=== PATIENT | female | born 1980 | race Caucasian/White ===

== ENCOUNTER → 2021-12-24 | Outpatient (CLI) | payer MEDICAID | LOC: M RAD 13:56 | PROVIDERS: ATTEND Physician Assistant Medical | DX: M79.675 Pain in left toe(s) (principal) ==

== ENCOUNTER 2022-09-02 10:17 | Emergency (ER) | payer MEDICAID, OTHER ==
[~2022-09-02] VITALS: Ht 175.3 cm; Wt 111.4 kg
[2022-09-02] MEDS ORDERED: PANTOPRAZOLE 40MG VIAL IV ONE (10:30)
[2022-09-02] MEDS ORDERED: GI COCKTAIL 50ML BTL(HYOSCYAMINE/MAALOX/LIDOCAINE VISCOUS)(1:3:1) PO ONE (10:30)
[2022-09-02 10:46] LABS: BASO # 0.1 10^3/uL (0.0-0.2); BASO % 0.6 % (0.0-1.0); EOS # 0.1 10^3/uL (0.0-0.5); EOS % 1.1 % (0.0-3.0); HEMATOCRIT 38.9 % (36.0-47.0); HEMOGLOBIN 12.7 g/dl (12.0-15.5); LYMPH # 1.1 10^3/uL (1.5-5.0); LYMPH % 11.9 % (24.0-44.0); MEAN CORPUSCULAR HEMOGLOBIN 28.9 pg (27.0-33.0); MEAN CORPUSCULAR HGB CONC 32.6 g/dl (32.0-36.5); MEAN CORPUSCULAR VOLUME 88.6 fl (80.0-96.0); MONO # 0.5 10^3/uL (0.0-0.8); MONO % 5.6 % (2.0-8.0); NEUTROPHILS # 7.1 10^3/uL (1.5-8.5); NEUTROPHILS % 80.5 % (36.0-66.0); PLATELET COUNT, AUTOMATED 255 10^3/uL (150-450); RED BLOOD COUNT 4.39 10^6/uL (4.00-5.40); WHITE BLOOD COUNT 8.9 10^3/uL (4.0-10.0)
[2022-09-02 11:07] LABS: CK-MB VALUE MASS < 1.0 NG/ML (<3.6)
[2022-09-02 11:09] LABS: LIPASE 31 U/L (12-53)
[2022-09-02 11:11] LABS: ALBUMIN 3.6 G/DL (3.2-5.2); ALKALINE PHOSPHATASE 77 U/L (46-116); ALT/SGPT 60 U/L (7.0-40); AST/SGOT 85 U/L (<34); BILIRUBIN,DIRECT 0.3 MG/DL (<0.4); BILIRUBIN,TOTAL 0.7 MG/DL (0.3-1.2); BLOOD UREA NITROGEN 12 MG/DL (9-23); CALCIUM LEVEL 8.4 MG/DL (8.5-10.1); CARBON DIOXIDE LEVEL 26 MMOL/L (20-31); CHLORIDE LEVEL 106 MMOL/L (98-107); CREATININE FOR GFR 0.84 MG/DL (0.55-1.30); GLOMERULAR FILTRATION RATE > 60.0 (>58); GLUCOSE, FASTING 107 MG/DL (60-100); POTASSIUM SERUM 3.8 MMOL/L (3.5-5.1); SODIUM LEVEL 140 MMOL/L (136-145); TOTAL PROTEIN 6.6 G/DL (5.7-8.2)
[2022-09-02 11:12] LABS: THYROID STIMULATING HORMONE 1.163 uIU/ML (0.55-4.78)
[2022-09-02 11:13] LABS: CPK CREATINE PHOSPHOKINASE 61 U/L (34-145); HCG, SERUM QUALITATIVE NEGATIVE (NEGATIVE); MB/CK RELATIVE INDEX 1.63 (< OR =4)
[2022-09-02] MEDS ORDERED: ONDANSETRON 4MG 2ML VIAL IV ONE (11:55)
[2022-09-02] MEDS ORDERED: MORPHINE 2 MG/ML 1ML VIAL IV PRN (11:55)
[2022-09-02 12:15] LABS: CK-MB VALUE MASS < 1.0 NG/ML (<3.6)
[2022-09-02 12:18] LABS: CPK CREATINE PHOSPHOKINASE 59 U/L (34-145); MB/CK RELATIVE INDEX 1.69 (< OR =4)
[2022-09-02] MEDS ORDERED: ISOVUE-370 76% 100ML VIAL As Ordered ONE (12:24)
[2022-09-02] MEDS ORDERED: PROT1TAB2 PO (15:02)
[2022-09-02] MEDS ORDERED: CARA1TAB6 PO (15:03)
[2022-09-02 15:10] VITALS: BP 112/72
== END 2022-09-02 15:17 | disposition home or self-care (01) ==
LOC: M ED 10:17 → EDBD 10:17 → M ED 15:17
DX: R07.9 Chest pain, unspecified (principal); Z79.899 Other long term (current) drug therapy
CPT/HCPCS: 71045; 71275; 74177; 80048; 80076; 82550; 82553; 83690; 84439; 84443; 84703; 85025; 93005; 93041; 94760; 96365; 96366; 96375; 99285; C9113; J2405; Q9967

== ENCOUNTER → 2023-05-22 | Outpatient (REF) | payer OTHER, MEDICAID ==
[~2023-05-22] MED LIST: CARA1TAB6 PO; PROT1TAB2 PO
[2023-05-22 18:30] LABS: BASO # 0.1 10^3/uL (0.0-0.2); BASO % 0.7 % (0.0-1.0); EOS # 0.2 10^3/uL (0.0-0.5); HEMATOCRIT 44.1 % (36.0-47.0); HEMOGLOBIN 14.3 g/dl (12.0-15.5); LYMPH # 1.6 10^3/uL (1.5-5.0); LYMPH % 23.2 % (24.0-44.0); MEAN CORPUSCULAR HEMOGLOBIN 29.7 pg (27.0-33.0); MEAN CORPUSCULAR HGB CONC 32.4 g/dl (32.0-36.5); MEAN CORPUSCULAR VOLUME 91.5 fl (80.0-96.0); MONO # 0.4 10^3/uL (0.0-0.8); MONO % 6.1 % (2.0-8.0); NEUTROPHILS # 4.5 10^3/uL (1.5-8.5); NEUTROPHILS % 66.7 % (36.0-66.0); PLATELET COUNT, AUTOMATED 271 10^3/uL (150-450); RED BLOOD COUNT 4.82 10^6/uL (4.00-5.40); WHITE BLOOD COUNT 6.7 10^3/uL (4.0-10.0)
[2023-05-22 19:02] LABS: ALBUMIN 4.1 G/DL (3.2-5.2); ALKALINE PHOSPHATASE 65 U/L (46-116); ALT/SGPT 33 U/L (7.0-40); AST/SGOT 23 U/L (<34); BILIRUBIN,TOTAL 0.4 MG/DL (0.3-1.2); BLOOD UREA NITROGEN 11 MG/DL (9-23); CALCIUM LEVEL 9.2 MG/DL (8.5-10.1); CARBON DIOXIDE LEVEL 28 MMOL/L (20-31); CHLORIDE LEVEL 108 MMOL/L (98-107); CHOLESTEROL LEVEL 224 MG/DL (<200); CHOLESTEROL RISK RATIO 5.19 (<5); CREATININE FOR GFR 0.87 MG/DL (0.55-1.30); GLOMERULAR FILTRATION RATE > 60.0 (>58); GLUCOSE, FASTING 91 MG/DL (60-100); HDL CHOLESTEROL 43.1 MG/DL (>40); LDL CHOLESTEROL 152.7 MG/DL (<100); MAGNESIUM LEVEL 2.2 MG/DL (1.8-2.4); NON-HDL-C 180.9 MG/DL; POTASSIUM SERUM 4.7 MMOL/L (3.5-5.1); SODIUM LEVEL 143 MMOL/L (136-145); TOTAL PROTEIN 7.1 G/DL (5.7-8.2); TRIGLYCERIDES LEVEL 141 MG/DL (<150)
[2023-05-22 19:05] LABS: THYROID STIMULATING HORMONE 0.426 uIU/ML (0.55-4.78); TOTAL 25(OH) VITAMIN D 13.1 NG/ML (20.0-100.0)
[2023-05-22 19:27] LABS: HEMOGLOBIN A1c 5.3 % (4.0-6.0)
== END ==
LOC: M LAB REF 17:10
PROVIDERS: ATTEND Physician Assistant
DX: E66.9 Obesity, unspecified (principal); R53.83 Other fatigue; E55.9 Vitamin D deficiency, unspecified; R05.9 Cough, unspecified

== ENCOUNTER → 2023-06-18 | Outpatient (CLI) | payer OTHER, MEDICAID | LOC: M SOG 08:39 | PROVIDERS: ATTEND Physician Assistant | DX: M25.512 Pain in left shoulder (principal) ==

== ENCOUNTER → 2023-09-07 | Outpatient (REF) | payer OTHER, MEDICAID ==
[2023-09-07 14:45] LABS: CHOLESTEROL RISK RATIO 5.65 (<5); HDL CHOLESTEROL 44.6 MG/DL (>40); LDL CHOLESTEROL 180.2 MG/DL (<100); NON-HDL-C 207.4 MG/DL
[2023-09-07 14:48] LABS: THYROID STIMULATING HORMONE 5.705 uIU/ML (0.55-4.78)
== END ==
LOC: M LAB REF 13:06
PROVIDERS: ATTEND Physician Assistant
DX: E03.9 Hypothyroidism, unspecified (principal)

== ENCOUNTER → 2024-01-13 | Outpatient (REF) | payer OTHER ==
[2024-01-13 18:15] LABS: CHOLESTEROL RISK RATIO 6.18 (<5); HDL CHOLESTEROL 41.4 MG/DL (>40); LDL CHOLESTEROL 185.4 MG/DL (<100); NON-HDL-C 214.6 MG/DL
[2024-01-13 18:16] LABS: THYROID STIMULATING HORMONE 6.129 uIU/ML (0.55-4.78)
[2024-01-13 18:17] LABS: FREE T4 1.37 NG/DL (0.89-1.76)
== END ==
LOC: M LAB REF 16:13
PROVIDERS: ATTEND Physician Assistant
DX: E03.9 Hypothyroidism, unspecified (principal); E78.5 Hyperlipidemia, unspecified